=== PATIENT | male | born 1975 | race Caucasian/White ===

== ENCOUNTER 2019-10-25 07:11 | Outpatient (CLI) | payer OTHER ==
--- NOTE | 2019-10-25 13:57 | MRI Report ---
Reason: RT LUMBAR RADICULOPATHY Procedure Date: 10/25/2019 Accession Number: [id number] / [id number] Procedure: MRI - Lumbar Spine W/O CPT Code: Final Report FULL RESULT: EXAM: MRI LUMBAR SPINE WITHOUT CONTRAST EXAM DATE: 10/25/2019 08:06 AM. CLINICAL HISTORY: Low back pain. Right-sided radiculopathy. COMPARISON: LUMBAR SPINE 2 VIEW 07/30/2019 9:55 AM. TECHNIQUE: Multiplanar, multisequence T1-weighted and fluid-sensitive sequences of the lumbar spine from T12 to S1 without contrast. Other: None. FINDINGS: Spinal Canal: The conus terminates at T12-L1. The conus medullaris and cauda equina are unremarkable. Alignment: No scoliosis or spondylolisthesis. Bone Marrow: Five [id number] lumbar vertebral bodies are assumed. No gross fractures or bone lesions. No bone marrow replacement. Disk Levels/Facets: L5-S1: Type II degenerative endplate changes. Moderate to severe disk space narrowing. Small posterior central to left paracentral disk protrusion. Minimal diffuse disk bulge. Mild foraminal stenoses. No canal stenosis. L4-L5: Minimal disk bulge. Mild right and minimal left foraminal stenoses. L3-L4: Minimal disk bulge with annular fissure. Minimal canal narrowing. No foraminal stenoses. L2-L3: Mild facet arthropathy. No stenoses. L1-L2: Mild facet arthropathy. No stenoses. T12-L1: Unremarkable. Musculature: Normal. No edema or fatty atrophy. Other: The partially visualized retroperitoneum is unremarkable. IMPRESSION: 1. Multilevel degenerative disk changes and facet arthropathy. 2. Moderate to severe disk space narrowing and small posterior central to left paracentral disk protrusion at L5-S1. Mild foraminal stenoses. Comment: The following findings are so common in adults without low back pain that while we report their presence, they must be interpreted with caution and in the context of the clinical situation. (Reference Walterk et al, Spine 2001) Prevalence of findings in patients without low back pain: Disk degeneration (any evidence): 92% Disk desiccation/T2 signal loss: 83% Disk height loss: 56% Disk bulge: 64% Disk protrusion: 32% Annular tear/high intensity zone: 38% RADIA
== END 2019-10-25 07:12 | disposition home or self-care (01) ==
LOC: DI 07:11
PROVIDERS: ATTEND Family Medicine
DX: M51.36 Other intervertebral disc degeneration, lumbar region (principal); M51.37 Other intervertebral disc degeneration, lumbosacral region; M47.816 Spondylosis without myelopathy or radiculopathy, lumbar region; M51.27 Other intervertebral disc displacement, lumbosacral region; M48.061 Spinal stenosis, lumbar region without neurogenic claudication; M48.07 Spinal stenosis, lumbosacral region
CPT/HCPCS: 72148